=== PATIENT | male | born 1940 | race Caucasian/White ===

== ENCOUNTER 2021-09-06 10:05 | Inpatient (IN) ==
[2021-09-06] MEDS ORDERED: CeFAZolin Syr 2,000MG/20 ML 2,000 MG/20 ML SYRINGE IVPB ONE (10:51)
[2021-09-06] MEDS ORDERED: Acetaminophen IV 1,000 MG/100 ML BAG IVPB ONE (10:53)
[2021-09-06] MEDS ORDERED: Albuterol 2.5 MG/3 ML NEBULIZER IH ONE (10:54)
[2021-09-06] MEDS ORDERED: Ringers Solution, Lactated 1,000 ML IVC SCH (11:00)
[2021-09-06] MEDS ORDERED: *HR* FentaNYL (PF) 100 MCG/2 ML VIAL IVP PRN (11:09)
[2021-09-06] MEDS ORDERED: *HR* Propofol 200 MG/20 ML VIAL IVP ONE (11:29)
[2021-09-06] MEDS ORDERED: Lidocaine -MPF 2% 5 ML VIAL ONE (11:30)
[2021-09-06] MEDS ORDERED: *HR* Rocuronium Bromide 50 MG/5 ML VIAL ONE ×2 (11:30→15:50)
[2021-09-06] MEDS ORDERED: *HR* Succinylcholine 200 MG/10 ML VIAL IVP ONE (11:30)
[2021-09-06] MEDS ORDERED: *HR* FentaNYL (PF) 100 MCG/2 ML VIAL ONE ×2 (12:04→14:23)
[2021-09-06] MEDS ORDERED: *HR* Midazolam HCl 2 MG/2 ML VIAL ONE ×2 (12:04→13:56)
[2021-09-06] MEDS ORDERED: Ondansetron 4 MG/2 ML VIAL ONE (12:04)
[2021-09-06 14:10] LABS: ABG Base Excess -4 mEq/L (-2 to 3); ABG Chloride 108 mEq/L (98-107); ABG Glucose 154 mg/dL (60-95); ABG HCO3 25 mEq/L (21-27); ABG Ionized Calcium 1.23 mmol/L (1.15-1.35); ABG Oxygen Saturation 95 % (95-98); ABG PCO2 57 mmHg (35-45); ABG PH 7.24 pH Units (7.32-7.45); ABG PO2 89 mmHg (85-104); ABG TCO2 26 mEq/L (20-26)
[2021-09-06] MEDS ORDERED: Tranexamic Acid 1,000 MG/10 ML VIAL ONE ×2 (14:17→14:18)
[2021-09-06] MEDS ORDERED: *HR* HYDROmorphone (PF) 1 MG/ML SYRINGE IVP ONE ×2 (15:16→17:16)
[2021-09-06] MEDS ORDERED: *HR* HYDROmorphone (PF) 1 MG/ML SYRINGE ONE (15:17)
[2021-09-06] MEDS ORDERED: EPHEDrine 50 MG/ML VIAL ONE (15:46)
[2021-09-06 16:56] LABS: Basophils # 0.1 K/mcL (0.0-0.2); Basophils % 0.4 %; Eosinophils % 0.2 %; Hematocrit 36.5 % (37.5-50.1); Hemoglobin 11.3 g/dL (12.9-16.9); Immature Granulocytes % 0.5 % (0-4); Lymphocytes # 0.5 K/mcL (0.6-4.6); Lymphocytes % 4.1 %; Mean Corpuscular Hemoglobin 29.6 pg (28.0-33.3); Mean Corpuscular Volume 95.5 fL (83.0-100.0); Mean Platelet Volume 10.5 fL (9.4-12.4); Monocytes # 0.1 K/mcL (0.0-1.3); Monocytes % 1.1 %; Neutrophils # 12.2 K/mcL (1.6-8.9); Platelet Count 102 K/mcL (140-400); Red Blood Count 3.82 M/mcL (4.19-5.50); Red Cell Distribution Width 14.3 % (11.5-14.5); Segmented Neutrophils % 93.7 %
[2021-09-06] MEDS ORDERED: Ondansetron 4 MG/2 ML VIAL IVP PRN (19:03)
[2021-09-06] MEDS: 0.9 % Sodium Chloride 1,000 ML IVC SCH (20:39)
[2021-09-06 21:09] LABS: ABG Base Excess -1 mEq/L (-2 to 3); ABG HCO3 24 mEq/L (21-27); ABG Oxygen Saturation 93 % (95-98); ABG PCO2 41 mmHg (35-45); ABG PH 7.38 pH Units (7.32-7.45); ABG PO2 70 mmHg (85-104); ABG TCO2 25 mEq/L (20-26); Blood Gas Modality PC
[2021-09-06] MEDS: ceFAZolin 1,000 MG in Water for inj. (sterile) 10 ML IVP SCH (21:24)
[2021-09-06] MEDS ORDERED: Midazolam HCl 50 MG/100 ML IV.SOLN IVC SCH (21:30)
[2021-09-07] MEDS: ceFAZolin 1,000 MG in Water for inj. (sterile) 10 ML IVP SCH ×3 (03:36→19:46)
[2021-09-07 04:50] LABS: ABG Base Excess -1 mEq/L (-2 to 3); ABG HCO3 24 mEq/L (21-27); ABG Oxygen Saturation 94 % (95-98); ABG PCO2 37 mmHg (35-45); ABG PH 7.42 pH Units (7.32-7.45); ABG PO2 71 mmHg (85-104); ABG TCO2 25 mEq/L (20-26); Blood Gas Modality PC
[2021-09-07 05:47] LABS: Hematocrit 39.3 % (37.5-50.1); Mean Corpuscular HGB Conc 30.5 g/dL (31.6-35.5); Mean Corpuscular Hemoglobin 29.6 pg (28.0-33.3); Mean Corpuscular Volume 96.8 fL (83.0-100.0); Mean Platelet Volume 10.6 fL (9.4-12.4); Platelet Count 116 K/mcL (140-400); Red Blood Count 4.06 M/mcL (4.19-5.50); Red Cell Distribution Width 14.3 % (11.5-14.5); White Blood Count 12.4 K/mcL (4.3-11.1)
[2021-09-07 06:07] LABS: BUN/Creatinine Ratio 22 (6-26); Blood Urea Nitrogen 29 mg/dL (8-23); Calcium 8.6 mg/dL (8.6-10.3); Carbon Dioxide 22 mEq/L (23-29); Chloride 107 mEq/L (98-107); Glucose 147 mg/dL (70-105); Magnesium 2.1 mg/dL (1.6-2.6); Osmolality,Calculated 291 (280-300); Potassium 4.7 mEq/L (3.5-5.1); Sodium 136 mEq/L (136-145); eGFR For African Americans > 60 (> 60); eGFR For Non-African Americans 52 (> 60)
[2021-09-07] MEDS: Pantoprazole 40 MG VIAL IVP SCH (07:35)
[2021-09-07] MEDS ORDERED: Pantoprazole 40 MG in 0.9 % Sodium Chloride 50 ML IVPB SCH (09:00)
[2021-09-07] MEDS: 0.9 % Sodium Chloride 1,000 ML IVC SCH ×2 (09:51→23:13)
[2021-09-07] MEDS: *HR* Acetylcysteine 20% 600 MG/3 ML ORAL SYRINGE PO SCH ×2 (11:48→19:47)
[2021-09-07] MEDS: Metoprolol XL (24 HR) Succ 25 MG TAB.ER.24H PO SCH (11:51)
[2021-09-07] MEDS: *HR* HYDROcodone/Acet 5/325 mg TABLET PO PRN ×2 (16:32→20:35)
[2021-09-07] MEDS: Ipratropium/Albuterol Neb 3 ML IH SCH ×3 (18:07→23:15)
[2021-09-08 03:32] LABS: Red Cell Distribution Width 14.5 % (11.5-14.5)
[2021-09-08 03:34] LABS: Hematocrit 33.5 % (37.5-50.1); Hemoglobin 10.7 g/dL (12.9-16.9); Immature Platelets 4.6 % (1.1-6.1); Mean Corpuscular HGB Conc 31.9 g/dL (31.6-35.5); Mean Corpuscular Hemoglobin 29.6 pg (28.0-33.3); Mean Corpuscular Volume 92.8 fL (83.0-100.0); Mean Platelet Volume 10.7 fL (9.4-12.4); Red Blood Count 3.61 M/mcL (4.19-5.50); White Blood Count 9.4 K/mcL (4.3-11.1)
[2021-09-08] MEDS: Ipratropium/Albuterol Neb 3 ML IH SCH ×5 (03:37→19:53)
[2021-09-08 03:41] LABS: BUN/Creatinine Ratio 20 (6-26); Blood Urea Nitrogen 21 mg/dL (8-23); Calcium 8.4 mg/dL (8.6-10.3); Carbon Dioxide 25 mEq/L (23-29); Chloride 110 mEq/L (98-107); Glucose 112 mg/dL (70-105); Osmolality,Calculated 296 (280-300); Potassium 3.6 mEq/L (3.5-5.1); Sodium 141 mEq/L (136-145); eGFR For African Americans > 60 (> 60); eGFR For Non-African Americans > 60 (> 60)
[2021-09-08] MEDS: ceFAZolin 1,000 MG in Water for inj. (sterile) 10 ML IVP SCH ×2 (04:49→07:07)
[2021-09-08] MEDS: *HR* HYDROcodone/Acet 5/325 mg TABLET PO PRN ×4 (04:50→19:28)
[2021-09-08] MEDS: Pantoprazole 40 MG VIAL IVP SCH (09:20)
[2021-09-08] MEDS: Metoprolol XL (24 HR) Succ 25 MG TAB.ER.24H PO SCH (09:20)
[2021-09-08] MEDS ORDERED: 0.9 % Sodium Chloride 1,000 ML IVC SCH ×2 (09:42→12:15)
[2021-09-08] MEDS ORDERED: Famotidine 20 MG TABLET PO SCH (09:45)
[2021-09-08] MEDS ORDERED: Sennosides/Docusate Sodium TABLET PO SCH (09:45)
[2021-09-08] MEDS ORDERED: Furosemide 20 MG TABLET PO ONE (10:00)
[2021-09-08] MEDS ORDERED: Ondansetron 4 MG/2 ML VIAL IVP PRN (12:15)
[2021-09-08] MEDS: *HR* Acetylcysteine 20% 600 MG/3 ML ORAL SYRINGE PO SCH ×2 (13:40→19:28)
[2021-09-08] MEDS: Famotidine 20 MG TABLET PO SCH (19:28)
[2021-09-08] MEDS: Sennosides/Docusate Sodium TABLET PO SCH (19:29)
[2021-09-09] MEDS: Ipratropium/Albuterol Neb 3 ML IH SCH ×7 (00:07→23:38)
[2021-09-09] MEDS ORDERED: *HR* LORazepam 2 MG/ML VIAL ONE (01:21)
[2021-09-09] MEDS ORDERED: *HR* LORazepam 2 MG/ML VIAL IVP PRN (02:23)
[2021-09-09 04:07] LABS: Hematocrit 36.8 % (37.5-50.1); Hemoglobin 11.6 g/dL (12.9-16.9); Mean Corpuscular HGB Conc 31.5 g/dL (31.6-35.5); Mean Corpuscular Hemoglobin 30.1 pg (28.0-33.3); Mean Corpuscular Volume 95.3 fL (83.0-100.0); Mean Platelet Volume 10.6 fL (9.4-12.4); Red Blood Count 3.86 M/mcL (4.19-5.50); Red Cell Distribution Width 14.3 % (11.5-14.5); White Blood Count 9.4 K/mcL (4.3-11.1)
[2021-09-09 04:25] LABS: BUN/Creatinine Ratio 20 (6-26); Blood Urea Nitrogen 20 mg/dL (8-23); Calcium 8.3 mg/dL (8.6-10.3); Carbon Dioxide 25 mEq/L (23-29); Chloride 107 mEq/L (98-107); Glucose 104 mg/dL (70-105); Magnesium 2.3 mg/dL (1.6-2.6); Osmolality,Calculated 291 (280-300); Potassium 3.7 mEq/L (3.5-5.1); Sodium 139 mEq/L (136-145); eGFR For African Americans > 60 (> 60); eGFR For Non-African Americans > 60 (> 60)
[2021-09-09] MEDS: Famotidine 20 MG TABLET PO SCH ×2 (09:32→19:52)
[2021-09-09] MEDS: Metoprolol XL (24 HR) Succ 25 MG TAB.ER.24H PO SCH (09:33)
[2021-09-09] MEDS: Sennosides/Docusate Sodium TABLET PO SCH ×2 (09:33→19:59)
[2021-09-09] MEDS: Furosemide 40 MG/4 ML VIAL IVP SCH ×2 (15:03→19:56)
[2021-09-09] MEDS: *HR* Acetylcysteine 20% 600 MG/3 ML ORAL SYRINGE PO SCH (15:47)
[2021-09-09] MEDS: *HR* HYDROcodone/Acet 5/325 mg TABLET PO PRN ×2 (15:50→19:52)
[2021-09-09] MEDS: QUEtiapine Fumarate 25 MG TABLET PO SCH (21:19)
[2021-09-10] MEDS: Ipratropium/Albuterol Neb 3 ML IH SCH ×6 (04:13→23:34)
[2021-09-10] MEDS: Famotidine 20 MG TABLET PO SCH ×2 (07:51→20:45)
[2021-09-10] MEDS: Furosemide 40 MG/4 ML VIAL IVP SCH (07:51)
[2021-09-10] MEDS: Sennosides/Docusate Sodium TABLET PO SCH ×2 (07:51→20:45)
[2021-09-10] MEDS: Metoprolol XL (24 HR) Succ 25 MG TAB.ER.24H PO SCH (07:52)
[2021-09-10 14:27] LABS: Hematocrit 36.3 % (37.5-50.1); Mean Corpuscular HGB Conc 33.1 g/dL (31.6-35.5); Mean Corpuscular Hemoglobin 30.6 pg (28.0-33.3); Mean Corpuscular Volume 92.6 fL (83.0-100.0); Mean Platelet Volume 10.7 fL (9.4-12.4); Platelet Count 150 K/mcL (140-400); Red Blood Count 3.92 M/mcL (4.19-5.50); White Blood Count 10.9 K/mcL (4.3-11.1)
[2021-09-10] MEDS: *HR* HYDROcodone/Acet 5/325 mg TABLET PO PRN (14:38)
[2021-09-10 14:52] LABS: Calcium 8.7 mg/dL (8.6-10.3); Magnesium 2.1 mg/dL (1.6-2.6); Potassium 3.7 mEq/L (3.5-5.1)
[2021-09-10] MEDS: QUEtiapine Fumarate 25 MG TABLET PO SCH (20:45)
[2021-09-11] MEDS ORDERED: *HR* LORazepam 2 MG/ML VIAL IVP PRN (02:44)
[2021-09-11 02:55] LABS: Hemoglobin 11.1 g/dL (12.9-16.9); Mean Corpuscular HGB Conc 31.7 g/dL (31.6-35.5); Mean Corpuscular Hemoglobin 29.1 pg (28.0-33.3); Mean Corpuscular Volume 91.9 fL (83.0-100.0); Mean Platelet Volume 10.4 fL (9.4-12.4); Platelet Count 133 K/mcL (140-400); Red Blood Count 3.81 M/mcL (4.19-5.50); Red Cell Distribution Width 14.1 % (11.5-14.5); White Blood Count 8.7 K/mcL (4.3-11.1)
[2021-09-11 03:18] LABS: Calcium 8.7 mg/dL (8.6-10.3); Magnesium 2.1 mg/dL (1.6-2.6); Potassium 3.3 mEq/L (3.5-5.1)
[2021-09-11] MEDS: Ipratropium/Albuterol Neb 3 ML IH SCH ×4 (04:04→15:00)
[2021-09-11 07:26] VITALS: BP 93/65; TEMP 98.1
[2021-09-11] MEDS: Famotidine 20 MG TABLET PO SCH (08:06)
[2021-09-11] MEDS: Metoprolol XL (24 HR) Succ 25 MG TAB.ER.24H PO SCH (08:06)
[2021-09-11] MEDS: Sennosides/Docusate Sodium TABLET PO SCH (08:06)
[2021-09-11 08:38] VITALS: PULSE 73
[2021-09-11 12:58] VITALS: O2SAT 90
== END 2021-09-11 17:37 | disposition home health service (06) | DRG 163 ==
LOC: SAMDAY 10:05 → ICNU 19:02 → 2NNU 09-10 22:01
PROVIDERS: ADMIT Thoracic Surgery (Cardiothoracic Vascular Surgery); ATTEND Thoracic Surgery (Cardiothoracic Vascular Surgery)